=== PATIENT | female | born 1995 | race Caucasian/White ===

== ENCOUNTER → 2020-03-04 10:42 | Outpatient (CLI) | payer OTHER | END | disposition home or self-care (01) | LOC: D.MRI 10:30 | PROVIDERS: ATTEND Family Medicine | DX: M25.562 Pain in left knee (principal) ==

== ENCOUNTER → 2020-03-16 09:44 | Outpatient (CLI) | payer OTHER | END | disposition home or self-care (01) | LOC: D.MRI 09:44 | PROVIDERS: ATTEND Clinical Nurse Specialist Family Health | DX: M54.16 Radiculopathy, lumbar region (principal) ==